=== PATIENT | female | born 1995 | race Caucasian/White ===

== ENCOUNTER 2025-02-20 10:54 | Emergency (ER) | payer MEDICAID ==
[~2025-02-20] VITALS: Ht 152.4 cm; Wt 95.0 kg
[2025-02-20 10:58] VITALS: O2SAT 99
[2025-02-20 11:07] VITALS: BP 154/82; PULSE 97; RESP 18; TEMP 36.9; O2SAT 99
[2025-02-20] MEDS ORDERED: ACYC200O MT (11:44)
== END 2025-02-20 12:10 | disposition home or self-care (01) ==
LOC: ER 10:55
DX: B00.1 Herpesviral vesicular dermatitis (principal)
CPT/HCPCS: 99283